=== PATIENT | male | born 1945 | race Caucasian/White ===

== ENCOUNTER → 2021-05-04 | Outpatient (CLI) | payer MEDICARE | END | disposition home or self-care (01) | LOC: LAB 13:04 → LAB SHORT 13:04 | PROVIDERS: Family Medicine | DX: M16.11 Unilateral primary osteoarthritis, right hip (principal); Z79.899 Other long term (current) drug therapy | CPT/HCPCS: G0480 ==

== ENCOUNTER 2021-11-24 20:10 | Emergency (ER) | payer OTHER ==
[~2021-11-24] VITALS: Ht 172.7 cm; Wt 93.0 kg
[2021-11-24] MEDS ORDERED: Amitriptyline H10 MG (21:52)
[2021-11-24] MEDS ORDERED: HYDROCODONE-AC1 EA16 PO (21:52)
[2021-11-24] MEDS ORDERED: AMLODIPINE BESY10 MG PO (21:52)
[2021-12-25] MEDS ORDERED: HYDR1TAB94 PO (11:23)
== END 2021-11-24 22:31 | disposition home or self-care (01) ==
LOC: ER 20:10
DX: M54.41 Lumbago with sciatica, right side (principal)
CPT/HCPCS: 96372; 99282-25; J1885

== ENCOUNTER 2021-12-16 18:15 | Emergency (ER) | payer OTHER ==
[~2021-12-16] VITALS: Ht 172.7 cm; Wt 91.6 kg
[~2021-12-16 18:15] MED LIST: AMLODIPINE BESY10 MG PO; Amitriptyline H10 MG; HYDROCODONE-AC1 EA16 PO
[2021-12-16] MEDS ORDERED: LISI20 PO (21:31)
[2021-12-16] MEDS ORDERED: HYDR1TAB94 PO (21:35)
[2021-12-16] MEDS ORDERED: Neurontin 100100 MG PO (21:35)
[2021-12-25] MEDS ORDERED: HYDR1TAB94 PO (11:23)
== END 2021-12-16 22:00 | disposition home or self-care (01) ==
LOC: ER 18:15
DX: G89.29 Other chronic pain (principal); M25.551 Pain in right hip; F17.200 Nicotine dependence, unspecified, uncomplicated
CPT/HCPCS: 99282; A9270

== ENCOUNTER 2022-01-15 18:53 | Emergency (ER) | payer OTHER ==
[~2022-01-15] VITALS: Ht 172.7 cm; Wt 95.2 kg
[~2022-01-15 18:53] MED LIST changes: +HYDR1TAB94 PO; +LISI20 PO; +Neurontin 100100 MG PO
== END 2022-01-15 20:21 | disposition home or self-care (01) ==
LOC: ER 18:53
DX: G89.29 Other chronic pain (principal); M54.9 Dorsalgia, unspecified; M25.559 Pain in unspecified hip; F17.200 Nicotine dependence, unspecified, uncomplicated; Z79.899 Other long term (current) drug therapy
CPT/HCPCS: J1885